=== PATIENT | female | born 1945 | race Caucasian/White ===

== ENCOUNTER 2021-01-29 07:27 | Emergency (ER) | payer OTHER, BC ==
[~2021-01-29] VITALS: Ht 167.6 cm; Wt 68.0 kg
[2021-01-29] MEDS ORDERED: LIDOCAINE HCL/EPINEPHRINE 1%-EPI 1:100,000 10 ML VIAL IJ ONE (08:00)
[2021-01-29 09:33] VITALS: BP 147/42
== END 2021-01-29 10:01 | disposition home or self-care (01) ==
LOC: ER 08:07
DX: S01.01XA Laceration without foreign body of scalp, initial encounter (principal); R03.0 Elevated blood-pressure reading, without diagnosis of hypertension; E78.00 Pure hypercholesterolemia, unspecified; E05.90 Thyrotoxicosis, unspecified without thyrotoxic crisis or storm; V49.49XA Driver injured in collision with other motor vehicles in traffic accident, initial encounter; Y93.89 Activity, other specified; Y92.488 Other paved roadways as the place of occurrence of the external cause
CPT/HCPCS: 12002; 70450; 93005; 99284; A4217; J3490; Z7610